=== PATIENT | male | born 1975 | race Caucasian/White ===

== ENCOUNTER 2019-02-23 19:00 | Emergency (ER) | payer MEDICAID, OTHER ==
[~2019-02-23] VITALS: Ht 162.6 cm; Wt 63.5 kg
[~2019-02-23 19:00] MED LIST: HYDR-3980 PO; NALO4SPR NS
[2019-02-23 19:04] VITALS: Ht 162.6 cm; Wt 63.5 kg
[2019-02-23] MEDS ORDERED: ONDANSETRON 4 MG INJ IV STA (19:24)
[2019-02-23] MEDS ORDERED: morphine 4 MG/ML VIAL IV STA (19:24)
[2019-02-23 21:15] VITALS: BP 147/109; PULSE 88; RESP 20
== END 2019-02-23 21:15 | disposition home or self-care (01) ==
LOC: E/R 19:00
DX: S52.91XA Unspecified fracture of right forearm, initial encounter for closed fracture (principal); F17.210 Nicotine dependence, cigarettes, uncomplicated; R51 Headache; Y09 Assault by unspecified means
CPT/HCPCS: 29125; 70450; 73090; 96374; 96375; J2270; J2405; Z7502